=== PATIENT | male | born 1955 | race African-American/Black ===

== ENCOUNTER 2019-02-12 17:28 | Inpatient (IN) | payer MEDICARE ==
[2019-02-12] MEDS ORDERED: Ondansetron ODT 4 MG TAB SL PRN (19:01)
[2019-02-12] MEDS ORDERED: Ondansetron PF 4 MG/2 ML Vial IVP PRN (19:01)
[2019-02-12] MEDS ORDERED: Acetaminophen 325 MG TAB PO PRN (19:01)
[2019-02-12] MEDS ORDERED: Albuterol Sulfate 2.5 mg/3 ml Neb NEB PRN (19:01)
[2019-02-12 19:43] VITALS: BMI 29.0
[2019-02-12] MEDS ORDERED: Furosemide 40 MG/4 ML VIAL SLOW IVP SCH (21:00)
[2019-02-12] MEDS ORDERED: FLU VACC QS2019-20(6MOS UP)/PF 60 MCG/0.5 ML SYRINGE IM ONE (21:00)
[2019-02-12] MEDS: Famotidine/PF 20 mg/2ml Vial SLOW IVP SCH (21:06)
--- NOTE | 2019-02-12 23:25 | PDOC.HHP ---
Hospitalist HPI - History of Present Illness Shortness of breath History of Present Illness: Mr. Arcos has a history of COPD and CHF who presents with shortness of breath that has been worsening over the last few days. He uses oxygen at home and ran out 4 days ago. He misplaced his lasix around [facility] and then found it again. Reports taking Lasix 40 mg x 2 tablets yesterday evening and 1 tablet this morning. On arrival to the ED in [place] he was given 80 mg of Lasix IV. Since then he has had notable improvement. Denies coughing up any sputum and denies any hemoptysis. He is known to use cocaine and meth and states he last used drugs (meth) 4 days ago. ED Course: At [place] ED he had an EKG showing he was in AFIB RVR with a HR of 102. Patient was treated with 20 mg of diltiazem. Patient given duoneb while there was well as furosemide 80 mg IV and methylprednisolone. A CXR showed changes consistent with CHF Labs showed a normal WCC of 8.8, hgb 12.3, plt 357 D-dimer that was elevated at 1.77 Electrolytes and renal function unremarkable. BNP elevated at 1133.2 Trop negative (checked at 9:30 am), no further trops repeated before being transferred. CTA chest showed no PE, CHF as well as interstitial lung disease noted. two small nodules in the left lower lobe which were essentially stable compared to 2016, per report. Hospitalist ROS - Review of Systems Constitutional: denies: fever, chills, sweats, weakness, malaise, other Eyes: denies: pain, vision change, conjunctivae inflammation, eyelid inflammation, redness, other ENT: denies: ear pain, ear discharge, nose pain, nose discharge, nose congestion , mouth pain, mouth swelling, throat pain, throat swelling, other Respiratory: reports: cough (dry, chronic), shortness of breath, SOB with excertion Cardiovascular: denies: chest pain, palpitations, orthopnea, paroxysmal noc. dyspnea, edema, light headedness, other Gastrointestinal: denies: nausea, vomiting, abdominal pain, diarrhea, constipation, melena, hematochezia, other Genitourinary: denies: dysuria, frequency, incontinence, hematuria, retention, other Musculoskeletal: denies: neck pain, shoulder pain, arm pain, back pain, hand pain, leg pain, foot pain, other Skin: denies: rash, lesions, jose, bruising, other Neurological: denies: weakness, numbness, incoordination, change in speech, confusion, seizures, other - Medication Medications: Active Medications Generic Name Dose Route Start Last Admin Trade Name Freq PRN Reason Stop Dose Admin Famotidine 20 mg 02/12/19 21:00 02/12/19 21:06 Pepcid SLOW IVP 20 mg Q12HR CAT Administration Furosemide 40 mg 02/12/19 21:00 02/12/19 21:06 Lasix SLOW IVP 02/13/19 00:15 40 mg BID CAT Administration Hospitalist History - Past Medical History Cardiac: reports: AFIB, CAD, CHF, Other (aortic aneurysm) Pulmonary: reports: COPD Psych: reports: Addictions Musculoskeletal: reports: Osteoarthritis Infectious Disease: reports: Other (hepatitis C) - Past Surgical History Past Surgical History: reports: Other (hip surgery partial obectomy right knee surgery x 2) - Social History Smoking Status: Smoker, status unknown Alcohol: reports: Occassional Drugs: reports: cocaine, methamphetamine Living Situation: With Family - Exam General Appearance: NAD Eye: PERRL, anicteric sclera ENT: normocephalic atraumatic, no oropharyngeal lesions, moist mucosa Neck: supple, symmetric Heart: RRR Respiratory: CTAB, normal chest expansion, no tachypnea Gastrointestinal: soft, non-tender, non-distended, normal bowel sounds Extremities - other findings: Arms: multiple scars on arms, well healed, some healing due to meth use Neurological: cranial nerve grossly intact Musculoskeletal: normal tone, normal strength Psychiatric: normal affect, normal behavior, A&O x 3 Hospitalist H&P A/P - Problem (1) Atrial fibrillation with RVR Code(s): I48.91 - UNSPECIFIED ATRIAL FIBRILLATION Status: Acute (2) COPD (chronic obstructive pulmonary disease) Status: Acute (3) CHF exacerbation Code(s): I50.9 - HEART FAILURE, UNSPECIFIED Status: Acute (4) Drug abuse Code(s): F19.10 - OTHER PSYCHOACTIVE SUBSTANCE ABUSE, UNCOMPLICATED Status: Acute (5) Coronary artery disease Code(s): I25.10 - ATHSCL HEART DISEASE OF [place] CORONARY ARTERY W/O ANG PCTRS Status: Chronic (6) Interstitial lung disease Code(s): J84.9 - INTERSTITIAL PULMONARY DISEASE, UNSPECIFIED Status: Chronic (7) Osteoarthritis Code(s): M19.90 - UNSPECIFIED OSTEOARTHRITIS, UNSPECIFIED SITE Status: Chronic (8) Polysubstance abuse Code(s): F19.10 - OTHER PSYCHOACTIVE SUBSTANCE ABUSE, UNCOMPLICATED Status: Chronic - Plan Plan: Repeat EKG ordered. Patient with HR in 120s. Cardizem ordered. Cardiology consult. Has received total of Lasix 120 mg today, monitor renal function. Hold further Lasix for now. Continue with steroids and duonebs.
[2019-02-13 03:56] LABS: #Lymphocytes 0.9 thou/uL (1.20-3.40); #Neutrophils 6.2 thou/uL (1.40-6.50); %Basophils 0.5 % (0.0-1.0); %Lymphocytes 11.4 % (21.0-51.0); %Monocytes 12.4 % (0.0-10.0); %Neutrophils 75.7 % (42.0-75.0); Hemoglobin 15.4 g/dL (14.0-18.0); Mean Corpuscular HGB CONC 32.8 g/dL (32.0-36.0); Mean Corpuscular Hemoglobin 23.1 pg (27.0-31.0); Mean Corpuscular Volume 70.4 fL (78.0-98.0); Platelet Count 407 thou/uL (130-400); RBC Distribution Width 17.9 % (11.5-14.5); Red Blood Cell (RBC) Count 6.66 mill/uL (4.70-6.10); White Blood Cell (WBC) Count 8.2 thou/uL (4.8-10.8)
[2019-02-13 04:22] LABS: Anion Gap 15 mmol/L (10-20); BUN (Urea Nitrogen) 19 mg/dL (8.4-25.7); Calc. Creatinine Clearance 93 mL/min (70-130); Calcium 8.9 mg/dL (7.8-10.44); Carbon Dioxide 27 mmol/L (23-31); Chloride 101 mmol/L (98-107); Estimated GFR-MDRD 82; Glucose 161 mg/dL (80-115); Potassium 4.1 mmol/L (3.5-5.1); Sodium 139 mmol/L (136-145)
[2019-02-13] MEDS: Losartan 25 MG TAB PO SCH (10:26)
[2019-02-13] MEDS: Aspirin 81 mg Enteric Coated Tablet PO SCH (10:26)
[2019-02-13] MEDS: predniSONE 20 MG TAB PO SCH (10:26)
[2019-02-13] MEDS: Carvedilol 25 MG TAB PO SCH ×2 (10:27→17:46)
[2019-02-13] MEDS: Famotidine/PF 20 mg/2ml Vial SLOW IVP SCH ×2 (10:30→21:20)
--- NOTE | 2019-02-13 11:45 | PDOC.HOSPP ---
- Subjective Subjective: Pt is lying in bed comfortably. He is on 3 L NC, which is his home dose. He reports that he will not be able to get his medications until Feb 28 because of lack of resources. - Objective Vital Signs & Weight: Vital Signs (12 hours) Temp Pulse Resp BP Pulse Ox 02/13/19 07:50 97.5 F L 98 28 H 137/63 98 02/13/19 07:17 80 16 02/13/19 04:12 97.5 F L 96 16 140/79 94 L Weight Weight 213 lb 14.4 oz Result Diagrams: 02/13/19 03:09 02/13/19 03:09 Hospitalist ROS - Medication Medications: Active Medications Generic Name Dose Route Start Last Admin Trade Name Freq PRN Reason Stop Dose Admin Albuterol/Ipratropium 3 ml 02/13/19 07:00 02/13/19 07:17 Duoneb NEB 3 ml [id number] CAT Administration Aspirin 81 mg 02/13/19 09:00 02/13/19 10:26 Ecotrin PO 81 mg DAILY CAT Administration Carvedilol 12.5 mg 02/13/19 08:00 02/13/19 10:27 Coreg PO 12.5 mg BID-WM CAT Administration Diltiazem HCl 30 mg 02/13/19 07:30 02/13/19 10:27 Cardizem PO 30 mg ACHS CAT Administration Famotidine 20 mg 02/12/19 21:00 02/12/19 21:06 Pepcid SLOW IVP 20 mg Q12HR CAT Administration Losartan Potassium 25 mg 02/13/19 09:00 02/13/19 10:26 Cozaar PO 25 mg DAILY CAT Administration Prednisone 40 mg 02/13/19 08:00 02/13/19 10:26 Prednisone PO 40 mg QAM-WM CAT Administration - Exam Heart: RRR, no murmur, no gallops, no rubs Respiratory: no wheezes, no ronchi, rales (diffuse) Hosp A/P (1) Atrial fibrillation with RVR Code(s): I48.91 - UNSPECIFIED ATRIAL FIBRILLATION Status: Acute (2) COPD (chronic obstructive pulmonary disease) Status: Acute (3) Polysubstance abuse Code(s): F19.10 - OTHER PSYCHOACTIVE SUBSTANCE ABUSE, UNCOMPLICATED Status: Chronic - Plan Atrial Fibrillation with RVR: Returned to sinus rhythm. On Coreg. High risk for anticoagulation given the IVDA and skin lesion from injections. Interstitial Lung Disease: Stable on 3 L NC, which is his home regimen. Repeat CXR. Likely secondary to smoking cigarettes and cocaine. Acute on chronic systolic CHF exacerbation: Echo pending. Cardiomyopathy: Echo pending. Consulted cardiology. Polysubstance use: Counseled patient on the need to quit smoking and quit methamphetamine/drug use. PUD Prophylaxis: On pepcid. DVT Prophylaxis: On lovenox.
--- NOTE | 2019-02-13 12:33 | RAD ---
CHEST TWO VIEWS: 02/13/2019 PROVIDED CLINICAL HISTORY: Rales. COMPARISON: 02/12/2019 FINDINGS: Cardiac and mediastinal silhouette is unchanged in appearance. Prominence of the pulmonary vasculatur e and pulmonary interstitium is redemonstrated. Median sternotomy changes are again seen. Air space d isease in the right perihilar region is noted. Given differences in technique, there is probably some improvement in the air space disease. No evidence for significant pleural fluid. No evidence for pne umothorax. IMPRESSION: Findings again compatible with congestive failure and alveolar edema, the latter of which appears pro bably improved with respect to the prior examination. POS: OFF
[2019-02-13] MEDS: Atorvastatin Calcium 40 MG TAB PO SCH (21:20)
[2019-02-13] MEDS: Enoxaparin Sodium 80 MG/0.8 ML SYRINGE SC SCH (21:20)
[2019-02-14 05:07] LABS: #Eosinphils 0.1 thou/uL (0.0-0.7); #Lymphocytes 1.8 thou/uL (1.20-3.40); #Monocytes 1.3 thou/uL (0.11-0.59); #Neutrophils 10.7 thou/uL (1.40-6.50); %Basophils 0.1 % (0.0-1.0); %Eosinophils 0.5 % (0.0-10.0); %Lymphocytes 12.8 % (21.0-51.0); %Monocytes 9.2 % (0.0-10.0); %Neutrophils 77.4 % (42.0-75.0); Hemoglobin 14.2 g/dL (14.0-18.0); Mean Corpuscular Hemoglobin 23.5 pg (27.0-31.0); Mean Corpuscular Volume 71.1 fL (78.0-98.0); Mean Platelet Volume 9.7 fL (7.4-10.4); Platelet Count 374 thou/uL (130-400); RBC Distribution Width 17.5 % (11.5-14.5); Red Blood Cell (RBC) Count 6.04 mill/uL (4.70-6.10); White Blood Cell (WBC) Count 13.8 thou/uL (4.8-10.8)
[2019-02-14 05:12] LABS: Anion Gap 13 mmol/L (10-20); BUN (Urea Nitrogen) 25 mg/dL (8.4-25.7); Calc. Creatinine Clearance 105 mL/min (70-130); Calcium 8.6 mg/dL (7.8-10.44); Carbon Dioxide 24 mmol/L (23-31); Chloride 102 mmol/L (98-107); Estimated GFR-MDRD Greater than 90; Glucose 138 mg/dL (80-115); Potassium 4.1 mmol/L (3.5-5.1); Sodium 135 mmol/L (136-145)
[2019-02-14] MEDS: Famotidine/PF 20 mg/2ml Vial SLOW IVP SCH ×3 (08:44→20:06)
[2019-02-14] MEDS: Aspirin 81 mg Enteric Coated Tablet PO SCH (08:44)
[2019-02-14] MEDS: predniSONE 20 MG TAB PO SCH (08:44)
[2019-02-14] MEDS: Enoxaparin Sodium 80 MG/0.8 ML SYRINGE SC SCH ×2 (08:44→20:06)
[2019-02-14] MEDS: Losartan 25 MG TAB PO SCH (08:44)
[2019-02-14] MEDS: Carvedilol 25 MG TAB PO SCH ×2 (08:44→16:00)
[2019-02-14] MEDS: Furosemide 40 MG/4 ML VIAL SLOW IVP SCH ×2 (08:48→12:17)
[2019-02-14] MEDS ORDERED: Enoxaparin Sodium 40 MG/0.4 ML SYRINGE SC SCH (09:00)
--- NOTE | 2019-02-14 09:40 | CON ---
DATE OF CONSULTATION: PRIMARY CARE DOCTOR: Unknown. PRIMARY CERT OCCUPATIONAL THERAPY ASST: Going to be Dr. Corina Blackwood. REASON FOR CARDIOLOGY CONSULTATION: Atrial fibrillation and congestive heart failure. HISTORY OF PRESENT ILLNESS: Mr. Arcos is a 63-year-old male with significant history of coronary artery disease with CABG x5 in 2009, multiple hip replacement, COPD, heart failure, ascending aortic aneurysm 4.5-5 cm in 2016, hypertension, hyperlipidemia, arthritis, and multiple illicit drug abuse. The patient is from [place]. He just moved to [facility] a couple of weeks ago. He was recently discharged from hospital in [place] beginning of this month with home O2; however, he has not followed up with his primary care doctor so that he could not refill oxygen at home which causing worsening of shortness of breath. patient displaced his Lasix. So he was not using home oxygen and he was not taking the Lasix more than a week. Due to those reasons, the patient started having shortness of breath and the patient decided to come to the emergency department. After the patient was given 80 mg Lasix IV with the oxygen, the patient's symptoms improved. The patient was transferred to [facility] for further evaluation and treatment. The patient denied chest pain, heaviness, tightness, dizziness, lightheadedness, palpitation, fluttering, or any other cardiac complaints. At the [facility], the patient was found to have atrial fibrillation with rapid ventricular response with heart rate around 100. The patient continued to have atrial fibrillation on the telemetry record with heart rate, 70s to 100 at this moment. The patient denied any shortness of breath, palpitation, fluttering, dizziness, lightheadedness, or any other cardiac complaints at this moment. According to the patient's report, the patient had a stress test, echo was done in the beginning of this month at the [facility] in [place]. The patient was told all those results are negative. PAST MEDICAL HISTORY: Coronary artery disease, hypertension, hyperlipidemia, arthritis, COPD, congestive heart failure. Ascending aortic aneurysm in 2016, I believe he has not had any further evaluation for this result. PAST SURGICAL HISTORY: He has multiple hip replacement surgeries and bilateral knee replacement, to the right lung in . FAMILY HISTORY: The patient's father had an enlarged heart according to the patient. The patient's mother had a CABG at the age of 50s. The patient's son has a congenital heart problem. SOCIAL HISTORY: He is . He has 17 children. Besides that the one son who has a congenital heart problem, other children are living well. He is a smoker, half pack a day. He denies EtOH abuse; however, he uses meth and cocaine and the last use was last Sunday. He drinks Coca-Cola 20 ounce a day. He lives by himself. He does not do much home. ALLERGIES: HE HAS NO KNOWN DRUG ALLERGIES. HOME MEDICATIONS: 1. Losartan 25 mg once a day. 2. Lasix 40 mg once a day. 3. Carvedilol 12.5 mg twice a day. 4. Atorvastatin 40 mg once a day. 5. Aspirin 81 mg once a day. REVIEW OF SYSTEMS: 12-point review of systems negative unless otherwise mentioned in the HPI. PHYSICAL EXAMINATION: VITAL SIGNS: Blood pressure 137/65, temperature 97.7, pulse 70s to 80s, in atrial fibrillation, respiratory rate 18, O2 saturation 97% on room air. GENERAL: The patient is alert and oriented x4. However, the patient is very forgetful. HEAD: Normocephalic, atraumatic. EYES: Extraocular muscle movement intact. The patient wears glasses. ENT AND MOUTH: The patient does not have teeth on the upper jaw. Otherwise, no lesions noticed. NECK: Supple. Normal range of motion. No JVD. RESPIRATORY: Very diminished in the bases. He is with 3 L nasal cannula at this moment. CARDIOVASCULAR: Irregularly irregular. No S3 or S4. No significant murmur, hives, or thrill noted. 2+ pulses in bilateral upper and lower extremities. No edema in the lower extremities. Carotid pulses are present without bruit or thrill. ABDOMEN: Soft, nontender. No mass to palpitate. Bowel sounds are present. MUSCULOSKELETAL: The patient able to move all extremities without difficulty. The patient denied claudication. SKIN: The patient has multiple skin lesions in the upper bilateral extremities, possibly from cocaine and meth injections. NEUROLOGIC: The patient is alert and oriented x4. Nonfocal. PSYCHIATRIC: The patient's mood is appropriate. LABORATORY DATA: WBC 8.2, hemoglobin 15.4, hematocrit 46.9, platelet 407. Sodium 134, potassium 4.1, BUN 19, creatinine 1.10. Troponin negative. Calcium 8.9. AST 19, ALT 12, CK-MB to 1.9. BNP is more than 1100. TSH is 1.2036. Cholesterol 111, triglycerides 60, HDL 41, LDL 58. D-dimer is 1.77. CT chest showing no PE. Urine protein is positive. The patient's echocardiogram in February 2015, EF 20% to 25%, global hypokinesis, aortic valve sclerosis, mild mitral valve regurgitation, mild tricuspid regurgitation, lateral wall dyskinesis. ASSESSMENT AND PLAN: 1. Acute on chronic systolic heart failure with BNP more than 1100. According to echocardiogram in February 2015, the patient's EF at 20% to 25%. At that time, according to our medical record, the patient did not undergo AICD placement. At this moment, the patient does not have any AICD on the chest. The patient had echocardiogram done today and the result is pending at this moment. At this moment, the patient is on carvedilol 12.5 mg twice a day. The patient is going to be on Lasix 40 mg IV push once a day. The patient on losartan 25 mg once a day also. At this moment, the patient's respiratory status is stable with 3 L nasal cannula at this moment, we would like to continue current medication and adjust as appropriate. 2. New onset atrial fibrillation with rapid ventricular response. The patient's heart rate is well controlled at this moment. He is on diltiazem 30 mg 4 times a day, carvedilol 12.5 mg twice a day. We would like to change the Lovenox to twice a day and eventually, the patient is going to go home with anticoagulant. However, according the patient, the patient cannot move around well. He requires a walker or wheelchair. Unfortunately, he is going to live by himself according to the patient, he does not have any family support. Due to the reason, any anticoagulant is not good option for this patient due to high risk of fall and lack of family support, but we will continue to monitor. 3. Interstitial lung disease, most likely smoking cigarette and history of drug abuse. 4. Chronic obstructive pulmonary disease exacerbation. The patient's condition is stable at this moment with 3 L nasal cannula and also breathing treatment. 5. Coronary artery disease with history of CABG in 2009. The patient's condition is stable at this moment. The patient is on beta laurie, ARB, statin, and aspirin at this moment. 6. Tobacco and polysubstance abuse. Strongly recommend to start smoking and substance cessation to the patient. 7. Ascending aortic aneurysm which was diagnosed in 2016. I would like to go ahead to order CT scan of the abdomen for this patient. Thank you very much for Cardiology Service to participate in the care of this patient. We will follow along the patient's care team and make further recommendations as appropriate. Job ID: [id number]
--- NOTE | 2019-02-14 11:25 | RAD ---
EXAM: XR Chest Pa Lat STANDARD PROVIDED CLINICAL HISTORY: Productive cough COMPARISON: 02/13/2019 FINDINGS: Significant interval change with respect to the prior examination is not apparent. IMPRESSION: As above.
--- NOTE | 2019-02-14 12:51 | PDOC.CPN ---
- Subjective Date: 02/14/19 Time: 08:30 Interval history: The pt seen and examined. No overnight events. No cardiac complaints. - Objective Allergies/Adverse Reactions: Allergies Allergy/AdvReac Type Severity Reaction Status Date / Time No Known Drug Allergies Allergy Verified 02/12/19 19:48 Visit Medications: Current Medications Albuterol/Ipratropium (Duoneb) 3 ml NEB [id number] Last Admin: 02/14/19 06:49 Dose: 3 ml Aspirin (Ecotrin) 81 mg PO DAILY [facility] Last Admin: 02/14/19 08:44 Dose: 81 mg Atorvastatin Calcium (Lipitor) 40 mg PO HS [facility] Last Admin: 02/13/19 21:20 Dose: 40 mg Carvedilol (Coreg) 12.5 mg PO BID-[facility] Last Admin: 02/14/19 08:44 Dose: 12.5 mg Diltiazem HCl (Cardizem) 30 mg PO ACHS [facility] Last Admin: 02/14/19 12:18 Dose: 30 mg Enoxaparin Sodium (Lovenox) 80 mg SC 0900,2100 [facility] Last Admin: 02/14/19 08:44 Dose: 80 mg Famotidine (Pepcid) 20 mg SLOW IVP Q12HR [facility] Last Admin: 02/14/19 12:18 Dose: 20 mg Furosemide (Lasix) 40 mg SLOW IVP DAILY [facility] Last Admin: 02/14/19 12:17 Dose: 40 mg Losartan Potassium (Cozaar) 25 mg PO DAILY [facility] Last Admin: 02/14/19 08:44 Dose: 25 mg Prednisone (Prednisone) 40 mg PO QAM-[facility] Last Admin: 02/14/19 08:44 Dose: 40 mg Sodium Chloride (Flush - Normal Saline) 10 ml IVF Q12H PRN PRN Reason: Saline Flush Sodium Chloride (Flush - Normal Saline) 10 ml IVF PRN PRN PRN Reason: Saline Flush Vital Signs & Weight: Vital Signs Temp Pulse Resp BP Pulse Ox 02/14/19 11:31 97.3 F L 69 23 H 119/61 95 02/14/19 07:09 97.7 F 97 15 130/74 98 02/14/19 06:49 80 14 02/14/19 04:00 97.8 F 77 16 138/70 95 Weight 213 lb 14.4 oz - Physical Exam General: alert & oriented x3 HEENT: mucus membranes moist Neck: supple neck Cardiac: irregularly regular Lungs: clear to auscultation, decreased breath sounds - Labs Result Diagrams: 02/14/19 04:36 02/14/19 04:36 Troponin/CKMB Troponin I Less than 0.010 ng/mL (< 0.028) 02/13/19 03:09 - Telemetry Supraventricular conduction: atrial fibrillation - Assessment/Plan Assessment/Plan: 1. Acute on chronic Systolic HF with EF 25-30% (EF 20-25% in 2016) - stable with Coreg, Losartan, and Lasix; will order TSH; may need AICD or LifeVest prior to discharge? 2. New-onset afib with RVR - well controlled HR; on BBlocker and Diltiazem; on Lovenox BID; 3. COPD with Home O2 3LNC - stable 4. CAD with hx of CABG in 2009 - stable; on coreg, losartan, ASA, and Lipitor 40mg qd 5. Ascending aortic aneurysm in 2015 - CT chest/thoracic did not show AAA this time. Cont. to monitor Tobacco/polysubstance abuse - Strongly recommend tobacco and polysubstance cessation MAR reviewed * Echo on 02/13/2019 with EF 25-30%, mild-mod MR, and mild TR Pt. seen and eval. by me. I agree with the A/P by the TECHNICAL SERVICE REP. the EF is low, 25-30% . I do not feel that he is a candidate for an AICD due to the multiple skin lesions. He is high risk for infection. The HR is controlled on the present meds. With his continued drug abuse and self injections he is also not a good candidate for OAC. If he can get his medications and take them then likely he can be d/c'd to home and f/u as an outpt. if he will follow up. His Troponin-I was negative but if he hasnt had a stress test in the last year and the Afib. is found to be new onset then he should undergo a stress test to rule out ischemia as an etiology for the atrial fib. reji
--- NOTE | 2019-02-14 15:27 | PDOC.HOSPP ---
- Subjective Subjective: Says she does not feel great today. He has a cough productive of orantes sputum. No significant SOB. - Objective Vital Signs & Weight: Vital Signs (12 hours) Temp Pulse Resp BP Pulse Ox 02/14/19 14:04 80 16 02/14/19 11:31 97.3 F L 69 23 H 119/61 95 02/14/19 07:09 97.7 F 97 15 130/74 98 02/14/19 06:49 80 14 02/14/19 04:00 97.8 F 77 16 138/70 95 Weight Weight 213 lb 14.4 oz I&O: 02/13/19 02/14/19 02/15/19 06:59 06:59 06:59 Intake Total 900 Output Total 1000 300 Balance -100 -300 Result Diagrams: 02/14/19 04:36 02/14/19 04:36 Hospitalist ROS - Medication Medications: Active Medications Generic Name Dose Route Start Last Admin Trade Name Freq PRN Reason Stop Dose Admin Albuterol/Ipratropium 3 ml 02/13/19 07:00 02/14/19 14:04 Duoneb NEB 3 ml [id number] CAT Administration Aspirin 81 mg 02/13/19 09:00 02/14/19 08:44 Ecotrin PO 81 mg DAILY CAT Administration Atorvastatin Calcium 40 mg 02/13/19 21:00 02/13/19 21:20 Lipitor PO 40 mg HS CAT Administration Carvedilol 12.5 mg 02/13/19 08:00 02/14/19 08:44 Coreg PO 12.5 mg BID-WM CAT Administration Diltiazem HCl 30 mg 02/13/19 07:30 02/14/19 12:18 Cardizem PO 30 mg ACHS CAT Administration Enoxaparin Sodium 80 mg 02/13/19 21:00 02/14/19 08:44 Lovenox SC 80 mg 0900,2100 CAT Administration Famotidine 20 mg 02/12/19 21:00 02/14/19 12:18 Pepcid SLOW IVP 20 mg Q12HR CAT Administration Furosemide 40 mg 02/14/19 09:00 02/14/19 12:17 Lasix SLOW IVP 40 mg DAILY CAT Administration Losartan Potassium 25 mg 02/13/19 09:00 02/14/19 08:44 Cozaar PO 25 mg DAILY CAT Administration Prednisone 40 mg 02/13/19 08:00 02/14/19 08:44 Prednisone PO 40 mg QAM- CAT Administration - Exam General Appearance: NAD, awake alert Heart: RRR, no murmur Respiratory: rales, wheezes Gastrointestinal: soft, non-tender, non-distended, normal bowel sounds, no palpable masses, no hepatomegaly, no splenomegaly, no bruit Extremities: no cyanosis, no clubbing, no edema Skin - other findings: Numerous necrotic injection sites lesions on forearms. Musculoskeletal: normal tone, normal strength, no muscle wasting Psychiatric: normal affect, normal behavior, A&O x 3 Hosp A/P (1) Atrial fibrillation with RVR Code(s): I48.91 - UNSPECIFIED ATRIAL FIBRILLATION Status: Acute (2) COPD (chronic obstructive pulmonary disease) Status: Acute (3) Polysubstance abuse Code(s): F19.10 - OTHER PSYCHOACTIVE SUBSTANCE ABUSE, UNCOMPLICATED Status: Chronic - Plan Atrial Fibrillation with RVR: Returned to sinus rhythm. On Coreg. High risk for anticoagulation given the IVDA and skin lesion from injections. Interstitial Lung Disease: Stable on 3 L NC, which is his home regimen. Repeat CXR. Likely secondary to smoking cigarettes and crack cocaine. Unclear if he has any infection with the productive cough or if it is more chronic. Acute on chronic systolic CHF exacerbation: Echo with EF 25-30%. Cardiomyopathy: Consulted cardiology. He is not likely a candidate for intervention given his ongoing, very active drug abuse. Polysubstance use: Counseled patient on the need to quit smoking and quit methamphetamine/drug use. He fully understands the need to quit. PUD Prophylaxis: On pepcid. DVT Prophylaxis: On lovenox.
[2019-02-14] MEDS: Atorvastatin Calcium 40 MG TAB PO SCH (20:06)
--- NOTE | 2019-02-14 21:20 | CON ---
DATE OF CONSULTATION: 02/13/2019 INDICATION FOR CONSULTATION: A 63-year-old with history of coronary artery disease, status post bypass surgery, history of cardiomyopathy, history of illicit drug use. He has developed now atrial fibrillation which may be chronic, was uncertain of when it developed. His ejection fraction in the past has been as low as 20% to 25%. At this time, repeat echocardiogram shows ejection fraction of 25% to 30%. He also has [id number] mitral valve regurgitation. He has been previously seen I believe in the [facility]. He recently moved to [facility], but has not yet seen Cardiology. He came in due to having shortness of breath and fatigue. He was found to have atrial fibrillation with rapid ventricular response. Since being here, the heart rate has been under much better control, and he did not have any complaints of chest pain at this time. He does have minimal shortness of breath, but does appear to be very comfortable. For his past medical history, social history, family history, review of systems, allergies, medications please refer the notes dictated by my nurse practitioner, also on physical examination I reviewed these records, and we have discussed with this patient. I would agree with her assessment. The only addition is the patient does have as noted on the skin areas he has multiple areas on the skin with skin lesions as noted in Martha Ingram's history and physical due to episodes where he has tried to inject himself with illegal drugs. He certainly is a high risk candidate for abscesses. ASSESSMENT AND PLAN: A 63-year-old gentleman with illicit drug use, who has history of coronary artery disease and bypass surgery with severe decrease in left ventricular systolic function, who continues to use illicit drugs, who with multiple skin lesions due to trying to inject himself with cocaine or methamphetamines. He is otherwise alert, somewhat difficult to understand. He has kind of slurred speech, but otherwise mentation is within normal limits. His cardiac enzymes are negative for myocardial infarction. Heart rate is under better control. IMPRESSION: 1. Atrial fibrillation with rapid ventricular response, which is under better control at this time. We would continue with beta laurie to see if we can control his heart rate and once that is under good control then he should be stable. We will also need to give consideration to possible automated implantable cardioverter defibrillator implant, however, as long as he is using illicit drugs and has multiple wounds, which appeared to be maybe Staph, I would not advise a defibrillator in this patient this time. I did explain to him that he needs to stop using any kind of illicit drugs as these will most likely cause eventually some kind of endocarditis. 2. Chronic obstructive pulmonary disease. He has been followed by the primary care service. He has home oxygen, I believe. 3. Coronary artery disease, which appears to be stable. He is to undergo bypass surgery in the future, if he has not undergone a recent stress test, this may also be a consideration. Otherwise, from a cardiac standpoint, he is doing relatively well. The main issue will be to control his heart rate with the atrial fibrillation. At this time, the heart rate has been well controlled anywhere between the 60s to 90s. He will continue his medications with Coreg and diltiazem, may try to increase the Coreg and decrease the diltiazem if we can rate control him due to the history of cardiomyopathy, we will try to get him off the diltiazem if possible. Job ID: [id number]
[2019-02-15] MEDS: Carvedilol 25 MG TAB PO SCH ×2 (08:34→16:29)
[2019-02-15] MEDS: Aspirin 81 mg Enteric Coated Tablet PO SCH (08:34)
[2019-02-15] MEDS: Enoxaparin Sodium 80 MG/0.8 ML SYRINGE SC SCH ×2 (08:34→20:49)
[2019-02-15] MEDS: Famotidine/PF 20 mg/2ml Vial SLOW IVP SCH ×2 (08:35→20:46)
[2019-02-15] MEDS: Furosemide 40 MG/4 ML VIAL SLOW IVP SCH (08:35)
[2019-02-15] MEDS: Losartan 25 MG TAB PO SCH (08:35)
[2019-02-15] MEDS: predniSONE 20 MG TAB PO SCH (08:36)
[2019-02-15] MEDS: Atorvastatin Calcium 40 MG TAB PO SCH (20:46)
--- NOTE | 2019-02-15 22:32 | PDOC.HOSPP ---
- Subjective Encounter Date: 02/15/19 Encounter Time: 20:00 non-verbal Subjective: The patient is feeling better, less short of breath and less congested. Denies chest pain. Per nursing staff, he is having some dropped beats on telemetry - Objective Vital Signs & Weight: Vital Signs (12 hours) Temp Pulse Resp BP Pulse Ox 02/15/19 19:42 63 16 94 L 02/15/19 15:23 98.0 F 67 16 111/57 L 95 02/15/19 13:45 74 20 94 L 02/15/19 11:16 98.1 F 73 19 133/67 97 Weight Weight 213 lb 14.4 oz I&O: 02/14/19 02/15/19 02/16/19 06:59 06:59 06:59 Intake Total 900 1660 845 Output Total 1000 1999 282 Balance -100 -340 -1980 Result Diagrams: 02/14/19 04:36 02/14/19 04:36 Hospitalist ROS - Review of Systems Constitutional: denies: fever, chills - Medication Medications: Active Medications Generic Name Dose Route Start Last Admin Trade Name Freq PRN Reason Stop Dose Admin Albuterol/Ipratropium 3 ml 02/13/19 07:00 02/15/19 19:42 Duoneb NEB 3 ml [id number] CAT Administration Aspirin 81 mg 02/13/19 09:00 02/15/19 08:34 Ecotrin PO 81 mg DAILY CAT Administration Atorvastatin Calcium 40 mg 02/13/19 21:00 02/15/19 20:46 Lipitor PO 40 mg HS CAT Administration Carvedilol 12.5 mg 02/13/19 08:00 02/15/19 16:29 Coreg PO 12.5 mg BID-WM CAT Administration Enoxaparin Sodium 80 mg 02/13/19 21:00 02/15/19 20:49 Lovenox SC 80 mg 0900,2100 CAT Administration Famotidine 20 mg 02/12/19 21:00 02/15/19 20:46 Pepcid SLOW IVP 20 mg Q12HR CAT Administration Furosemide 40 mg 02/14/19 09:00 02/15/19 08:35 Lasix SLOW IVP 40 mg DAILY CAT Administration Losartan Potassium 25 mg 02/13/19 09:00 02/15/19 08:35 Cozaar PO 25 mg DAILY CAT Administration - Exam General Appearance: NAD, awake alert Eye: PERRL, anicteric sclera ENT: normocephalic atraumatic, no oropharyngeal lesions Neck: supple, symmetric, no JVD, no thyromegaly Heart: RRR, no murmur, no gallops, no rubs Respiratory: CTAB, no wheezes, no rales, no ronchi Gastrointestinal: soft, non-tender, non-distended, normal bowel sounds Extremities: no cyanosis, no clubbing, no edema Skin: normal turgor, no lesions, no rashes Neurological: cranial nerve grossly intact, normal sensation to touch, no focal deficits, no new deficit Hosp A/P - Plan ECHO: EF 25-30%, mild to moderate MR Chest X ray: cardiomegaly with pulmonary loyda a Chest X ray 02/14: no apparent change This is a 63 year old male with past medical history of COPD, ILD, cocaine abuse , afib, CAD wh opresented with shortness of breath, possible CHF/COPD exacerbation Acute hypoxic respiratory failure possibly secondary to systolic CHF - on lasix 40 mg IV daily, chest X ray showed edema on admission - need to wean off oxygen prior to d/c if possible - check daily weights, repeat x ray in morning - continue losartan COPD ILD - s/p prednisone 40 mg daily for 2 days, will d/c for now - AFib with RVR - better controlled - continue coreg, however repeat EKG due to potential dropped beats on telemetry , May need to hold coreg if bundle branch block - needs ICD, but not candidate due to drug abuse. Cardiology on board - on lovenox 80 mg BID Leukocytosis - WBC of 13.8 yesterday, recheck CBC today Cocaine abuse - needs abstinence on d/c Code status: full code
[2019-02-15 23:20] LABS: Hemoglobin 14.9 g/dL (14.0-18.0); Mean Corpuscular HGB CONC 32.8 g/dL (32.0-36.0); Mean Corpuscular Hemoglobin 23.6 pg (27.0-31.0); Mean Platelet Volume 9.2 fL (7.4-10.4); Platelet Count 344 thou/uL (130-400); RBC Distribution Width 17.9 % (11.5-14.5); Red Blood Cell (RBC) Count 6.29 mill/uL (4.70-6.10); White Blood Cell (WBC) Count 10.3 thou/uL (4.8-10.8)
[2019-02-15 23:41] LABS: Anion Gap 13 mmol/L (10-20); BUN (Urea Nitrogen) 18 mg/dL (8.4-25.7); Calc. Creatinine Clearance 110 mL/min (70-130); Calcium 8.9 mg/dL (7.8-10.44); Carbon Dioxide 30 mmol/L (23-31); Chloride 100 mmol/L (98-107); Estimated GFR-MDRD Greater than 90; Glucose 93 mg/dL (80-115); Magnesium 2.3 mg/dL (1.6-2.6); Potassium 4.5 mmol/L (3.5-5.1); Sodium 138 mmol/L (136-145)
[2019-02-16] MEDS: Aspirin 81 mg Enteric Coated Tablet PO SCH (07:47)
[2019-02-16] MEDS: Carvedilol 25 MG TAB PO SCH ×2 (07:47→15:54)
[2019-02-16] MEDS: Enoxaparin Sodium 80 MG/0.8 ML SYRINGE SC SCH ×2 (07:47→21:14)
[2019-02-16] MEDS: Losartan 25 MG TAB PO SCH (07:48)
[2019-02-16] MEDS: Furosemide 40 MG/4 ML VIAL SLOW IVP SCH (07:48)
[2019-02-16] MEDS: Famotidine/PF 20 mg/2ml Vial SLOW IVP SCH ×2 (07:48→21:14)
--- NOTE | 2019-02-16 08:00 | RAD ---
EXAM: XR Chest 1 View Portable PROVIDED CLINICAL HISTORY: Pulmonary edema COMPARISON: 02/14/2019 FINDINGS: Cardiac silhouette remains enlarged. Median sternotomy changes are again seen. Prominence of pulmonar y vasculature and pulmonary interstitium are redemonstrated. Minimal-mild patchy bilateral perihilar airspace disease may be present. There is no evidence for pleural fluid or pneumothorax. IMPRESSION: Stable radiographic appearance of the chest.
--- NOTE | 2019-02-16 15:10 | PDOC.HOSPP ---
- Subjective Encounter Date: 02/16/19 Encounter Time: 13:00 Subjective: The patient feels about the same. Still has some shortness of breath, no significant cough, no chest pain. Per patient, he was on oxygen at home, however ran out of it. Per cardiology, stable for discharge. - Objective Vital Signs & Weight: Vital Signs (12 hours) Temp Pulse Resp BP Pulse Ox 02/16/19 12:32 80 16 02/16/19 12:00 97.7 F 75 18 118/56 L 96 02/16/19 08:00 98 02/16/19 07:43 97.9 F 70 20 150/67 H 98 02/16/19 06:49 80 14 02/16/19 03:37 98.0 F 77 18 129/69 95 Weight Weight 213 lb 14.4 oz I&O: 02/15/19 02/16/19 02/17/19 06:59 06:59 06:59 Intake Total 1660 1685 Output Total 1999 6571 Balance -340 2039 Result Diagrams: 02/15/19 23:05 02/15/19 23:05 Hospitalist ROS - Review of Systems Constitutional: denies: fever, chills Respiratory: denies: cough, dry - Medication Medications: Active Medications Generic Name Dose Route Start Last Admin Trade Name Freq PRN Reason Stop Dose Admin Albuterol/Ipratropium 3 ml 02/13/19 07:00 02/16/19 12:32 Duoneb NEB 3 ml [id number] CAT Administration Aspirin 81 mg 02/13/19 09:00 02/16/19 07:47 Ecotrin PO 81 mg DAILY CAT Administration Atorvastatin Calcium 40 mg 02/13/19 21:00 02/15/19 20:46 Lipitor PO 40 mg HS CAT Administration Carvedilol 12.5 mg 02/13/19 08:00 02/16/19 07:47 Coreg PO 12.5 mg BID-WM CAT Administration Enoxaparin Sodium 80 mg 02/13/19 21:00 02/16/19 07:47 Lovenox SC 80 mg 0900,2100 CAT Administration Famotidine 20 mg 02/12/19 21:00 02/16/19 07:48 Pepcid SLOW IVP 20 mg Q12HR CAT Administration Furosemide 40 mg 02/14/19 09:00 02/16/19 07:48 Lasix SLOW IVP 40 mg DAILY CAT Administration Losartan Potassium 25 mg 02/13/19 09:00 02/16/19 07:48 Cozaar PO 25 mg DAILY CAT Administration - Exam General Appearance: NAD, awake alert Eye: PERRL, anicteric sclera ENT: normocephalic atraumatic, no oropharyngeal lesions Neck: supple, symmetric, no JVD, no thyromegaly Heart: RRR, no murmur, no gallops, no rubs Respiratory: CTAB, no wheezes, no rales, no ronchi Gastrointestinal: soft, non-tender, non-distended, normal bowel sounds Extremities: no cyanosis, no clubbing, no edema Skin: normal turgor, no lesions, no rashes Hosp A/P - Plan ECHO: EF 25-30%, mild to moderate MR Chest X ray: cardiomegaly with pulmonary loyda a Chest X ray 02/14: no apparent change Chest X ray 02/16: stable appearance of chest This is a 63 year old male with past medical history of COPD, ILD, cocaine abuse , afib, CAD wh opresented with shortness of breath, possible CHF/COPD exacerbation Acute on chronic hypoxic respiratory failure possibly secondary to systolic CHF - on lasix 40 mg IV daily, chest X ray showed edema on admission. Repeat chest X ray 02/16 shows some edema, however clinically seems better from heart standpoint, may just be IPF - will transition to lasix 40 mg bid - patient O2 sat 88% at rest, check on exertion as well. Need to arrange oxygen on discharge - continue losartan COPD ILD - s/p prednisone 40 mg daily for 2 days, will d/c for now - f/u with pulm as outpatient - needs oxygen on discharge AFib with RVR - better controlled - continue coreg, okay per cardiology - needs ICD, but not candidate due to drug abuse. Cardiology on board, signing off - on lovenox 80 mg BID, not great candidate for full anticoagulation since patient is bed-bound Leukocytosis - resolved Cocaine abuse - needs abstinence on d/c Disposition: stable for discharge, needs home oxygen evaluation set up Code status: full code
[2019-02-16] MEDS ORDERED: Furosemide 40 MG TAB PO SCH (15:15)
[2019-02-16] MEDS: Atorvastatin Calcium 40 MG TAB PO SCH (21:13)
[2019-02-17 05:27] LABS: Anion Gap 11 mmol/L (10-20); BUN (Urea Nitrogen) 17 mg/dL (8.4-25.7); Calc. Creatinine Clearance 116 mL/min (70-130); Calcium 8.9 mg/dL (7.8-10.44); Carbon Dioxide 32 mmol/L (23-31); Chloride 100 mmol/L (98-107); Estimated GFR-MDRD Greater than 90; Glucose 128 mg/dL (80-115); Potassium 4.6 mmol/L (3.5-5.1); Sodium 138 mmol/L (136-145)
[2019-02-17] MEDS: Losartan 25 MG TAB PO SCH (08:17)
[2019-02-17] MEDS: Carvedilol 25 MG TAB PO SCH ×2 (08:17→16:11)
[2019-02-17] MEDS: Famotidine/PF 20 mg/2ml Vial SLOW IVP SCH ×2 (08:18→20:24)
[2019-02-17] MEDS: Furosemide 40 MG TAB PO SCH ×2 (08:18→13:27)
[2019-02-17] MEDS: Enoxaparin Sodium 80 MG/0.8 ML SYRINGE SC SCH (08:18)
[2019-02-17] MEDS: Aspirin 81 mg Enteric Coated Tablet PO SCH (08:18)
--- NOTE | 2019-02-17 10:58 | PDOC.CPN ---
- Subjective Date: 02/17/19 Time: 10:48 Interval history: He feels back to baseline. He has home O2. - Review of Systems General: denies: fever/chills, weight/appetite/sleep changes, night sweats, fatigue Respiratory: denies: cough, congestion, shortness of breath, exercise intolerance Cardiovascular: denies: chest pain, palpitation, edema, paroxysmal nocturnal dyspnea, orthopnea Gastrointestinal: denies: nausea, vomiting, diarrhea, constipation, abd pain, GI bleeding Musculoskeletal: denies: pain, tenderness, stiffness, swelling, arthritis/ arthralgias Neurological: denies: numbness, syncope, seizure, weakness - Objective Allergies/Adverse Reactions: Allergies Allergy/AdvReac Type Severity Reaction Status Date / Time No Known Drug Allergies Allergy Verified 02/12/19 19:48 Visit Medications: Current Medications Albuterol/Ipratropium (Duoneb) 3 ml NEB [id number] [facility] Last Admin: 02/17/19 07:23 Dose: 3 ml Aspirin (Ecotrin) 81 mg PO DAILY [facility] Last Admin: 02/17/19 08:18 Dose: 81 mg Atorvastatin Calcium (Lipitor) 40 mg PO HS [facility] Last Admin: 02/16/19 21:13 Dose: 40 mg Carvedilol (Coreg) 12.5 mg PO BID-WM [facility] Last Admin: 02/17/19 08:17 Dose: 12.5 mg Enoxaparin Sodium (Lovenox) 80 mg SC 0900,2100 [facility] Last Admin: 02/17/19 08:18 Dose: 80 mg Famotidine (Pepcid) 20 mg SLOW IVP Q12HR [facility] Last Admin: 02/17/19 08:18 Dose: 20 mg Furosemide (Lasix) 40 mg PO 0900,1400 [facility] Last Admin: 02/17/19 08:18 Dose: 40 mg Losartan Potassium (Cozaar) 25 mg PO DAILY [facility] Last Admin: 02/17/19 08:17 Dose: 25 mg Sodium Chloride (Flush - Normal Saline) 10 ml IVF Q12H PRN PRN Reason: Saline Flush Last Admin: 02/17/19 08:18 Dose: 10 ml Sodium Chloride (Flush - Normal Saline) 10 ml IVF PRN PRN PRN Reason: Saline Flush Vital Signs & Weight: Vital Signs Temp Pulse Resp BP Pulse Ox 02/17/19 07:42 95 02/17/19 07:38 98.2 F 89 18 135/71 95 02/17/19 07:23 82 18 96 02/17/19 04:00 98.7 F 93 23 H 140/83 96 02/17/19 01:08 87 16 95 Weight 219 lb 14.4 oz - Physical Exam General: alert & oriented x3 HEENT: mucus membranes moist Neck: supple neck Cardiac: regular rate and rhythm Lungs: clear to auscultation Neuro: grossly intact Abdomen: active bowel sounds Extremities: 1+ LE edema Skin: clear Musculoskeletal: no pain - Labs Result Diagrams: 02/15/19 23:05 02/17/19 04:43 Troponin/CKMB Troponin I Less than 0.010 ng/mL (< 0.028) 02/13/19 03:09 - Telemetry Sinus rhythms and dysrhythmias: sinus rhythm - Assessment/Plan Assessment/Plan: 1. Acute on chronic Systolic HF with EF 25-30% 2. New-onset afib with RVR 3. COPD with Home O2 3L NC 4. CAD with hx of CABG in 2009 5. Ascending aortic aneurysm in 2016 - CT chest/thoracic did not show AAA this time 6. Tobacco/polysubstance abuse PLAN: - Not a candidate for AICD at this time due to skin lesions at this time. - Will stop SQ lovenox and will start Eliquis 5 mg BID. - Will stop Losartan and will start Entresto 24/26 mg PO BID - CV stable at this time. - Follow up with Dr Blackwood his Primary [employer] on discharge. - Substance cessation counselling performed.
[2019-02-17] MEDS: Apixaban 5 MG TAB PO SCH (20:24)
[2019-02-17] MEDS: Atorvastatin Calcium 40 MG TAB PO SCH (20:24)
--- NOTE | 2019-02-18 01:36 | DIS ---
DATE OF ADMISSION: 02/12/2019 DATE OF DISCHARGE: 02/17/2019 DISCHARGE DIAGNOSES: Acute on chronic hypoxic respiratory failure secondary to systolic congestive heart failure, chronic obstructive pulmonary disease, interstitial lung disease, atrial fibrillation with rapid ventricular response, leukocytosis, cocaine abuse. BRIEF HISTORY OF PRESENT ILLNESS: This is a 63-year-old male with past medical history of COPD and CHF, who presented to the emergency room with shortness of breath over the last 4 days. The patient was using cocaine and methamphetamine at home. He stated that he was recently at a hospital in [place] and was discharged with oxygen; however, he ran out of his oxygen 4 days ago. He also misplaced his Lasix around [facility]. On arrival to the ER, the patient was given 80 mg of IV Lasix with improvement. The patient had an EKG, showing atrial fibrillation with RVR with a heart rate of 102. The patient was admitted for further workup of heart failure and atrial fibrillation. Chest x-ray on admission showed pulmonary edema. HOSPITAL COURSE: Atrial fibrillation with RVR: The patient underwent cardiology consultation. The patient's atrial fibrillation eventually returned to sinus rhythm. He was maintained on his Coreg 12.5 mg p.o. twice a day and was discharged with this. The patient was thought not to be a good candidate for anticoagulation given that the patient does not move around much and due to his history of drug abuse. He was given Lovenox 80 mg subcu b.i.d. in the hospital. The patient will need to follow up with Dr. Blackwood in a week as an outpatient. The patient was thought to not be a candidate for an AICD at this time due to skin lesions from his drug abuse. Acute systolic heart failure: The patient was diuresed with IV Lasix 40 mg daily. The patient had an echocardiogram done on the , which showed an EF of 25% to 30%, [id number] MR, mild TR. The patient had a chest x-ray, which showed pulmonary edema on the and repeat chest x-ray still showed mild patchy bilateral airspace disease. The patient was eventually transitioned to oral Lasix on the . The patient will be discharged on Lasix 40 mg p.o. b.i.d. and will follow up with Dr. Blackwood in a week. Chronic respiratory failure, possibly secondary to heart failure versus ILD: The patient does have a history of interstitial lung disease. He was on 3 L nasal cannula at home. The patient's oxygen company was called and the patient had oxygen delivered to the hospital, which he will go home with. His repeat x-ray on showed patchy bilateral airspace disease. The patient does have some mild inspiratory fine crackles on exam. He needs to follow up with solid surface fabricator as an outpatient. The patient requested to get an albuterol inhaler on discharge, which will be ordered for him. Leukocytosis: The patient did have a white count of 13.8, which resolved to 10.3 on 02/15. The patient had no evidence of pneumonia on chest x-ray. Cocaine/methamphetamine abuse: The patient was counseled to stop using drugs on discharge due to the fact that he already has heart failure from this. The patient states that he will quit and will consider seeing an infection prevention specialist if this continues to be a problem. DISCHARGE PHYSICAL EXAMINATION: VITAL SIGNS: Temperature 97.8, heart rate 95, respiratory rate 16, O2 saturation 94% on 1 L nasal cannula, blood pressure 118/ 57. GENERAL: The patient is alert, awake, and oriented x3. He is overweight. CVS: Regular rate and rhythm with no murmurs, rubs, or gallops. LUNGS: Slightly diminished breath sounds at the bases with fine crackles. ABDOMEN: Positive bowel sounds, soft, nontender, nondistended. EXTREMITIES: Trace edema. PERTINENT LABORATORY DATA: CBC on 02/15: Shows a white count of 10.3, hemoglobin 14.9, hematocrit 45.3, platelet count 344. BMP on 02/17: CO2 was 32. Rest of BMP unremarkable. TSH: 1.4896. Troponin I: Less than 0.010. PERTINENT IMAGING: Chest x-ray on 02/13: Shows congestive heart failure and alveolar edema. Chest x-ray on 02/14: Shows pulmonary edema. Chest x-ray on 02/16: Shows minimal to mild patchy bilateral airspace disease. Echocardiogram on 02/13: Shows EF 25% to 30%, [id number] MR, mild TR. DISCHARGE CONDITION: Stable. The patient will be discharged with his home O2. DIET: Heart healthy diet with 2 L fluid restriction. DISCHARGE INSTRUCTIONS: The patient is to follow up with his PCP in a week and Dr. Blackwood in a week. The patient was advised to consider getting repeat labs done in a week. He is advised to stop using drugs. DISCHARGE MEDICATIONS: 1. Aspirin 81 mg p.o. b.i.d. 2. Atorvastatin 40 mg p.o. at bedtime. 3. Coreg 12.5 mg p.o. b.i.d. 4. Furosemide 40 mg p.o. b.i.d. 5. Losartan 25 mg p.o. daily. 6. Sacubitril/Valsartan one tablet p.o. b.i.d. 7. Proair 2 puffs inhaled q4 hours prn Job ID: [id number] MTDD
[2019-02-18 07:12] VITALS: BP 113/67; TEMP 97.5
[2019-02-18] MEDS: Apixaban 5 MG TAB PO SCH (08:16)
[2019-02-18] MEDS: Furosemide 40 MG TAB PO SCH (08:16)
[2019-02-18] MEDS: Carvedilol 25 MG TAB PO SCH (08:16)
[2019-02-18] MEDS: Aspirin 81 mg Enteric Coated Tablet PO SCH (08:16)
[2019-02-18] MEDS: Famotidine/PF 20 mg/2ml Vial SLOW IVP SCH (08:17)
--- NOTE | 2019-02-18 10:26 | PDOC.HOSPP ---
- Subjective Encounter Date: 02/17/19 Encounter Time: 11:00 Subjective: LATE ENTRY NOTE from 02/17: Patient seen yesterday and had no complaints. Plan was for discharge home but patient had no ride. He reports some shortness of breath that's chronic, no chest pain, no leg swelling - Objective Vital Signs & Weight: Vital Signs (12 hours) Temp Pulse Resp BP Pulse Ox 02/18/19 07:10 97.5 F L 82 18 113/67 94 L 02/18/19 06:50 71 18 97 02/18/19 03:45 97.7 F 90 18 133/73 96 02/18/19 00:24 76 16 93 L Weight Weight 219 lb 14.4 oz I&O: 02/17/19 02/18/19 02/19/19 06:59 06:59 06:59 Intake Total 1620 1000 Output Total 2379 1000 Balance -759 0 Result Diagrams: 02/15/19 23:05 02/17/19 04:43 Hospitalist ROS - Review of Systems Constitutional: denies: fever, chills - Medication Medications: Active Medications Generic Name Dose Route Start Last Admin Trade Name Freq PRN Reason Stop Dose Admin Albuterol/Ipratropium 3 ml 02/13/19 07:00 02/18/19 06:50 Duoneb NEB 3 ml [id number] CAT Administration Apixaban 5 mg 02/17/19 21:00 02/18/19 08:16 Eliquis PO 5 mg BID CAT Administration Aspirin 81 mg 02/13/19 09:00 02/18/19 08:16 Ecotrin PO 81 mg DAILY CAT Administration Atorvastatin Calcium 40 mg 02/13/19 21:00 02/17/19 20:24 Lipitor PO 40 mg HS CAT Administration Carvedilol 12.5 mg 02/13/19 08:00 02/18/19 08:16 Coreg PO 12.5 mg BID-WM CAT Administration Famotidine 20 mg 02/12/19 21:00 02/18/19 08:17 Pepcid SLOW IVP Not Given Q12HR CAT Furosemide 40 mg 02/17/19 09:00 02/18/19 08:16 Lasix PO 40 mg 0900,1400 CAT Administration Sacubitril/Valsartan 1 tab 02/17/19 21:00 02/18/19 08:16 Entresto 24 Mg-26 Mg Tablet PO 1 tab BID CAT Administration Sodium Chloride 10 ml 02/12/19 19:38 02/17/19 08:18 Flush - Normal Saline IVF 10 ml Q12H PRN Administration Saline Flush - Exam General Appearance: NAD, awake alert Eye: PERRL, anicteric sclera ENT: normocephalic atraumatic, no oropharyngeal lesions Neck: supple, symmetric, no JVD, no thyromegaly Heart: RRR, no murmur, no gallops, no rubs Respiratory: CTAB, no rales, no ronchi Respiratory - other findings: decreased breath sounds at bases Gastrointestinal: soft, non-tender, non-distended, normal bowel sounds Extremities: no cyanosis, no clubbing, 1+ LE edema Skin: normal turgor, no lesions, no rashes Neurological: cranial nerve grossly intact, normal sensation to touch, no focal deficits, no new deficit Musculoskeletal: normal tone, normal strength, no muscle wasting Psychiatric: normal affect, normal behavior, A&O x 3, oriented to person Hosp A/P - Plan ECHO: EF 25-30%, mild to moderate MR Chest X ray: cardiomegaly with pulmonary edema Chest X ray 02/14: no apparent change Chest X ray 02/16: stable appearance of chest This is a 63 year old male with past medical history of COPD, ILD, cocaine abuse , afib, CAD who presented with shortness of breath, possible CHF/COPD exacerbation Acute on chronic hypoxic respiratory failure possibly secondary to systolic CHF - chest X ray showed edema on admission. Repeat chest X ray 02/16 shows some edema, however clinically seems better from heart standpoint, may just be IPF - continue lasix 40 mg po bid - patients home oxygen was arranged - continue losartan COPD ILD - s/p prednisone 40 mg daily for 2 days - f/u with pulm as outpatient - needs oxygen on discharge AFib with RVR - better controlled - continue coreg, okay per cardiology - needs ICD, but not candidate due to drug abuse. Cardiology on board, signing off - on lovenox 80 mg BID, not great candidate for full anticoagulation since patient is bed-bound Leukocytosis - resolved Cocaine abuse - needs abstinence on d/c Disposition: stable for discharge Code status: full code
== END 2019-02-18 10:55 | disposition home or self-care (01) | DRG 291 ==
LOC: 2NO 17:28
PROVIDERS: ADMIT Internal Medicine; ATTEND Internal Medicine
DX: I11.0 Hypertensive heart disease with heart failure (principal); J96.01 Acute respiratory failure with hypoxia; J84.9 Interstitial pulmonary disease, unspecified; J44.1 Chronic obstructive pulmonary disease with (acute) exacerbation; I48.91 Unspecified atrial fibrillation; I50.23 Acute on chronic systolic (congestive) heart failure; I25.10 Atherosclerotic heart disease of native coronary artery without angina pectoris; M19.90 Unspecified osteoarthritis, unspecified site; B19.20 Unspecified viral hepatitis C without hepatic coma; F17.210 Nicotine dependence, cigarettes, uncomplicated; F19.10 Other psychoactive substance abuse, uncomplicated; F14.10 Cocaine abuse, uncomplicated; Z96.643 Presence of artificial hip joint, bilateral; I42.9 Cardiomyopathy, unspecified; Z79.01 Long term (current) use of anticoagulants; Z95.1 Presence of aortocoronary bypass graft
CPT/HCPCS: 36415; 71045; 71046; 80048; 83735; 84443; 84484; 85025; 85027; 93005; 93010; 93306; 93798; 94640; J1650; J1940; J7512; J7620; S0028